=== PATIENT | male | born 1965 ===

== ENCOUNTER 2019-07-17 11:53 | Inpatient (IN) | payer OTHER ==
[~2019-07-17] VITALS: Ht 167.6 cm; Wt 68.0 kg
[~2019-07-17 11:53] MED LIST: COZAAR50 MG PO; JANUMET 50-1,01 EACH PO; TOPROL XL100 M1 PO
[2019-07-17] MEDS ORDERED: JANUMET 50-1,01 EACH PO (12:40)
--- NOTE | 2019-07-17 12:41 | NUR ---
SE RECIBE PTE MASCULINO, ALERTA Y ORIENTADO, REFIERE DOLOR ABDOMINAL DESDE HACE MARYAM JACKSON Y VOMITOS
--- NOTE | 2019-07-17 13:00 | NUR ---
MS N MARIO ORIENTA A PACIENTE SOBRE ORDENES MEDICAS, COLECTA MUESTRAS DE PELON, CANALIZA VENA Y ADMINISTRA MEDICAMENTOS. PENDIENTE SONOGRAMA.
--- NOTE | 2019-07-17 15:59 | NUR ---
SE NOTIFICA A DR. Neelima WINSTON BP MANUAL 200/100.
== END 2019-07-29 18:30 | disposition home or self-care (01) | DRG 439 ==
LOC: ER 11:53 → SURH 20:08 → SEC-K 20:08 → SURH 21:41
PROVIDERS: ADMIT Internal Medicine
PROC: BF37ZZZ Magnetic Resonance Imaging (MRI) of Pancreas (ICD-10-PCS; principal; 2019-07-17)
PROC: BW21ZZZ Computerized Tomography (CT Scan) of Abdomen and Pelvis (ICD-10-PCS; 2019-07-17)
PROC: 3E0336Z Introduction of Nutritional Substance into Peripheral Vein, Percutaneous Approach (ICD-10-PCS; 2019-07-17)
PROC: 05HB33Z Insertion of Infusion Device into Right Basilic Vein, Percutaneous Approach (ICD-10-PCS; 2019-07-17)
PROC: BW21ZZZ Computerized Tomography (CT Scan) of Abdomen and Pelvis (ICD-10-PCS; 2019-07-26)
PROC: BW21Y0Z Computerized Tomography (CT Scan) of Abdomen and Pelvis using Other Contrast, Unenhanced and Enhanced (ICD-10-PCS; 2019-07-26)
DX: K85.80 Other acute pancreatitis without necrosis or infection (principal); R18.8 Other ascites; J91.8 Pleural effusion in other conditions classified elsewhere; N17.8 Other acute kidney failure; E86.0 Dehydration; F10.10 Alcohol abuse, uncomplicated; E11.65 Type 2 diabetes mellitus with hyperglycemia; E11.21 Type 2 diabetes mellitus with diabetic nephropathy; I13.10 Hypertensive heart and chronic kidney disease without heart failure, with stage 1 through stage 4 chronic kidney disease, or unspecified chronic kidney disease; N18.9 Chronic kidney disease, unspecified; I25.10 Atherosclerotic heart disease of native coronary artery without angina pectoris

== ENCOUNTER 2020-01-15 15:09 | Inpatient (IN) | payer OTHER ==
[~2020-01-15] VITALS: Ht 167.6 cm; Wt 68.5 kg
== END 2020-01-19 14:04 | disposition home or self-care (01) | DRG 439 ==
LOC: ER 15:09 → SURH 01-16 08:49
PROVIDERS: ADMIT Internal Medicine
PROC: BW40ZZZ Ultrasonography of Abdomen (ICD-10-PCS; principal; 2020-01-16)
DX: K85.90 Acute pancreatitis without necrosis or infection, unspecified (principal); N17.9 Acute kidney failure, unspecified; I10 Essential (primary) hypertension; F10.20 Alcohol dependence, uncomplicated; E11.21 Type 2 diabetes mellitus with diabetic nephropathy; I25.10 Atherosclerotic heart disease of native coronary artery without angina pectoris; R09.02 Hypoxemia; E86.0 Dehydration

== ENCOUNTER 2021-03-20 10:02 | Inpatient (IN) | payer OTHER ==
[~2021-03-20] VITALS: Ht 170.2 cm; Wt 68.0 kg
--- NOTE | 2021-03-20 10:39 | NUR ---
PTE REFIERE DOLOR ABDOMINAL SE SUNIL S/V Y SE UBICA EN AREA DE OBSERVACION
--- NOTE | 2021-03-20 11:30 | NUR ---
PACIENTE EVALUADO POR EL MEDICO, SE LE ORIENTA SOBRE EL TRATAMIENTO A RECIBIR, REFIERE ENTENDER LAS MISMAS. SE CANALIZA Y SE LE COLOCAN LOS IVF'S Y SE LE ADMINISTRAN LOS MEDICAMENTOS, SE LE SUNIL LAS MUETRAS DE PELON, SE LE ORIENTA A NO COMER NADA, SE LE ORIENTA TAMBIEN SOBRE EL SONOGRAMA ABDOMINAL Y ESTAR EN DESCANSO ABSOLUTO EN CAMA EN CAMA, ROXI LAS ORDENES MEDICAS.
--- NOTE | 2021-03-20 14:29 | NUR ---
SE ADMINISTRAN MEDICAMENTOS ROXI ORDEN MEDICA. SE ORIENTA A PACIENTE SOBRE TRATAMIENTO. PACIENTE REFIERE ENTENDER. PENDIENTE SONOGRAMA ABDOMINAL
--- NOTE | 2021-03-20 16:51 | NUR ---
PTE ALERTA,ESTABLE Y ORIENTADO.SE EDUCA SOBRE EL TRATAMIENTO QUE SE LE REALIZARA EN EL HOSPITAL Y TRACEY REFIERE ENTENDER.
[2021-03-21] MEDS ORDERED: LOSARTAN-HCTZ1 EAC1 (16:43)
[2021-03-21] MEDS ORDERED: METOPROLOL SUCC50 MG (16:43)
[2021-03-21] MEDS ORDERED: PANTOPRAZOLE SO40 MG (16:43)
[2021-03-26] MEDS ORDERED: CARDURA1 MG PO (09:24)
[2021-03-26] MEDS ORDERED: LOSARTAN POTAS100 MG PO (09:24)
[2021-03-26] MEDS ORDERED: HYDROCHLOROTHIA25 MG PO (09:24)
[2021-03-26] MEDS ORDERED: TOPROL XL50 M1 PO (09:24)
[2021-03-26] MEDS ORDERED: PROTONIX40 MG PO (09:24)
== END 2021-03-26 09:44 | disposition home or self-care (01) | DRG 439 ==
LOC: ER 10:02 → MEDJ 20:25 → SURH 03-21 16:18
PROVIDERS: ADMIT Internal Medicine; ATTEND Internal Medicine
PROC: BW40ZZZ Ultrasonography of Abdomen (ICD-10-PCS; 2021-03-20)
PROC: 4A12X4Z Monitoring of Cardiac Electrical Activity, External Approach (ICD-10-PCS; principal; 2021-03-22)
DX: K85.20 Alcohol induced acute pancreatitis without necrosis or infection (principal); N17.9 Acute kidney failure, unspecified; E86.0 Dehydration; E11.65 Type 2 diabetes mellitus with hyperglycemia; I10 Essential (primary) hypertension; Z20.822 Contact with and (suspected) exposure to COVID-19